=== PATIENT | male | born 1995 | race Hispanic/Latino ===

== ENCOUNTER 2018-03-31 14:18 | Emergency (ER) | payer SELFPAY ==
--- NOTE | 2018-03-31 16:46 | EDPHYS ---
Physician Documentation [facility] Name: Gael Rees Jr Age: 22 yrs Sex: Male : 1995 Arrival Date: 03/31/2018 Time: 14:22 Bed 11 Private MD: None, None ED Physician Thanh Proctor HPI: 03/31 16:41 This 22 yrs old Male presents to ER via Ambulatory with complaints of Back ps1 Pain, High Blood Pressure. 16:41 patient states that he had back pain that started this morning. 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 Pain rated as moderate and localized between the scapula. Additionally he was sent in for evaluation of his blood pressure. . Historical: - Allergies: 14:47 Tylenol; hj - Home Meds: 14:47 None [Active]; hj - PMHx: 14:47 [place]; hj - PSHx: 14:47 ear SX; hj - Immunization history:: Adult Immunizations up to date. - Social history:: Smoking status: Patient/guardian denies using tobacco, Patient/guardian denies using alcohol. - Ebola Screening: : Patient negative for fever greater than or equal to 101.5 degrees Fahrenheit, and additional compatible Ebola Virus Disease symptoms Patient denies exposure to infectious person Patient denies travel to an Ebola-affected area in the 21 days before illness onset. ROS: 16:43 Constitutional: Negative for fever, chills, and weight loss, Eyes: Negative for injury, ps1 pain, redness, and discharge, Cardiovascular: Negative for chest pain, palpitations, and edema, Respiratory: Negative for shortness of breath, cough, wheezing, and pleuritic chest pain, Abdomen/GI: Negative for abdominal pain, nausea, vomiting, diarrhea, and constipation, Skin: Negative for injury, rash, and discoloration, Neuro: Negative for headache, weakness, numbness, tingling, and seizure. 16:43 MS/extremity: Positive for pain. Exam: 16:43 Constitutional: This is a well developed, well nourished patient who is awake, alert, ps1 and in no acute distress. Head/Face: Normocephalic, atraumatic. Chest/axilla: Normal chest wall appearance and motion. Nontender with no deformity. No lesions are appreciated. Cardiovascular: Regular rate and rhythm. No gallops, murmurs, or rubs. Normal PMI, no JVD. No pulse deficits. Respiratory: Lungs have equal breath sounds bilaterally, clear to auscultation and percussion. No rales, rhonchi or wheezes noted. No increased work of breathing, no retractions or nasal flaring. Abdomen/GI: Soft, non-tender, with normal bowel sounds. No distension or tympany. No guarding or rebound. No evidence of tenderness throughout. Skin: Warm, dry with normal turgor. Normal color with no rashes, no lesions, and no evidence of cellulitis. MS/ Extremity: Pulses equal, no cyanosis. Neurovascular intact. Full, normal range of motion. 16:43 Back: patient examined in prone and supine position. Styles screen performed. Tissue texture changes localized to ST, Lumbar, and upper thoracic in compensatory pattern. HVLA performed and patients symptoms improved completely. Normal neurologic exam after. . Vital Signs: 14:47 BP 131 / 89; Pulse 84; Resp 18; Temp 97.4(TE); Pulse Ox 100% on R/A; Weight 61.23 kg; hj Height 5 ft. 6 in. (167.64 cm); Pain 9/10; 14:47 Body Mass Index 21.79 (61.23 kg, 167.64 cm) MDM: 15:07 Patient medically screened. ps1 03/31 15:19 Order name: CXR XRAY ps1 Administered Medications: No medications were administered Disposition: 03/31/18 16:46 Discharged to Home. Impression: Thoracic back pain. - Condition is Stable. - Discharge Instructions: Back Pain, Adult. - Prescriptions for Anaprox DS 550 mg Oral Tablet - take 1 tablet by ORAL route every 12 hours As needed; 20 tablet. - Medication Reconciliation Form, Thank You Letter, Antibiotic Education, Prescription Opioid Use form. - Follow up: Emergency Department; When: As needed; Reason: Worsening of condition. Follow up: Private Physician; When: As needed; Reason: If symptoms return, Further diagnostic work-up, Recheck today's complaints, Continuance of care. - Problem is new. - Symptoms have improved. Signatures: Dispatcher [employer] EDMS Ld Phelps RN RN Pati Oliveros RN RN Thanh Proctor MD MD ps1 Corrections: (The following items were deleted from the chart) 16:51 16:46 03/31/2018 16:46 Discharged to Home. Impression: Thoracic back pain. Condition is hb Stable. Forms are Medication Reconciliation Form, Thank You Letter, Antibiotic Education, Prescription Opioid Use. Follow up: Emergency Department; When: As needed; Reason: Worsening of condition. Follow up: Private Physician; When: As needed; Reason: If symptoms return, Further diagnostic work-up, Recheck today's complaints, Continuance of care. Problem is new. Symptoms have improved. ps1
--- NOTE | 2018-03-31 16:46 | ER ---
Nurse's Notes [facility] Name: Gael Rees Jr Age: 22 yrs Sex: Male : 1995 Arrival Date: 03/31/2018 Time: 14:22 Bed 11 Private MD: None, None Diagnosis: Thoracic back pain Presentation: 03/31 14:45 Presenting complaint: Patient states: i have shoulder pain that started this morning; i hj carry heavy things yesterday; reports elevated BP;. Transition of care: patient was not received from another setting of care. Onset of symptoms was March 31, 2018. Risk Assessment: Do you want to hurt yourself or someone else? Patient reports no desire to harm self or others. Initial Sepsis Screen: Does the patient meet any 2 criteria? No. Patient's initial sepsis screen is negative. Does the patient have a suspected source of infection? No. Patient's initial sepsis screen is negative. Care prior to arrival: None. 14:45 Method Of Arrival: Ambulatory 14:45 Acuity: THOMAS 4 hj Triage Assessment: 14:47 General: Appears in no apparent distress. uncomfortable, Behavior is calm, cooperative, hj appropriate for age. Pain: Complains of pain in shoulder. Musculoskeletal: Circulation, motion, and sensation intact. Historical: - Allergies: 14:47 Tylenol; hj - Home Meds: 14:47 None [Active]; hj - PMHx: 14:47 [place]; hj - PSHx: 14:47 ear SX; hj - Immunization history:: Adult Immunizations up to date. - Social history:: Smoking status: Patient/guardian denies using tobacco, Patient/guardian denies using alcohol. - Ebola Screening: : Patient negative for fever greater than or equal to 101.5 degrees Fahrenheit, and additional compatible Ebola Virus Disease symptoms Patient denies exposure to infectious person Patient denies travel to an Ebola-affected area in the 21 days before illness onset. Screenin:47 Abuse screen: Denies threats or abuse. Denies injuries from another. Nutritional hj screening: No deficits noted. Tuberculosis screening: No symptoms or risk factors identified. Fall Risk None identified. Vital Signs: 14:47 BP 131 / 89; Pulse 84; Resp 18; Temp 97.4(TE); Pulse Ox 100% on R/A; Weight 61.23 kg; hj Height 5 ft. 6 in. (167.64 cm); Pain 9/10; 14:47 Body Mass Index 21.79 (61.23 kg, 167.64 cm) ED Course: 14:22 Patient arrived in ED. mr 14:22 None, None is Private Physician. mr 14:46 Triage completed. hj 14:47 Arm band placed on left wrist. hj 14:47 Patient has correct armband on for positive identification. Placed in gown. Bed in low hj position. Call light in reach. Side rails up X 1. 15:04 Kaila Wade, RN is Primary Nurse. flynn 15:07 Thanh Proctor MD is Attending Physician. ps1 15:58 CXR XRAY In Process Unspecified. EDMS Administered Medications: No medications were administered Outcome: 16:46 Discharge ordered by . ps1 16:51 Patient left the ED. Signatures: Dispatcher [employer] EDMS Kaila Wade RN RN aj RiveraMarielos mr LeninLd villa RN RN hj Baxter, Heather, RN RN Thanh Proctor MD MD ps1
--- NOTE | 2018-03-31 17:43 | RAD REPORT ---
EXAM DESCRIPTION: Jenifer Single View03/31/2018 3:57 pm CLINICAL HISTORY: Chest pain COMPARISON: April 2017 FINDINGS: The lungs appear clear of acute infiltrate. The heart is normal size IMPRESSION: No acute abnormalities displayed
== END 2018-03-31 16:51 | disposition home or self-care (01) ==
LOC: ER 14:18
DX: M54.6 Pain in thoracic spine (principal); Z88.6 Allergy status to analgesic agent
CPT/HCPCS: 71045; 99282

== ENCOUNTER 2020-09-10 09:48 | Emergency (ER) | payer SELFPAY ==
[2020-09-10 11:13] LABS: Absolute Lymphocytes (CBC) 1.6 K/uL (0.7-4.9); Basophils % 0.4 % (0-1.3); Hematocrit 44.8 % (39.6-49.0); Lymphocytes % 29.3 % (15.3-44.8); MPV 8.5 fL (7.6-11.3); RBC Red Blood Cell Count 4.99 M/uL (4.33-5.43)
--- NOTE | 2020-09-10 11:19 | RAD REPORT ---
EXAM DESCRIPTION: RAD - Chest Single View - 09/10/2020 10:38 am CLINICAL HISTORY: PALPITATIONS COMPARISON: March 2018 TECHNIQUE: AP portable chest image was obtained 09/10/2020 10:38 am . FINDINGS: Lungs are clear. Heart and vasculature are normal. No measurable pleural effusion and no p neumothorax. No acute bony abnormality seen. No acute aortic findings suspected. IMPRESSION: No acute cardiopulmonary process.
[2020-09-10 11:27] LABS: Protime INR 0.99
[2020-09-10 11:33] LABS: ALT/SGPT 30 U/L (12-78); AST/SGOT 14 U/L (15-37); Albumin 4.3 g/dL (3.4-5.0); Alkaline Phosphatase 119 U/L (45-117); BUN Blood Urea Nitrogen 13 mg/dL (7-18); Bicarbonate 29 mmol/L (21-32); Bilirubin Direct < 0.1 mg/dL (0-0.2); Bilirubin Total 0.4 mg/dL (0.2-1.0); Glucose Level 95 mg/dL (74-106); Magnesium 2.4 mg/dL (1.8-2.4); Potassium 3.9 mmol/L (3.5-5.1); Protein, Total 8.8 g/dL (6.4-8.2); Sodium Level 140 mmol/L (136-145); Troponin (Emerg Dept Use Only) < 0.02 ng/mL (0.0-0.045)
[2020-09-10 12:04] LABS: Urine Blood Negative (Negative); Urine Glucose Negative (Negative); Urine Protein Negative (Negative)
[2020-09-10 12:19] LABS: Barbiturates NEGATIVE (NEGATIVE); Benzodiazepines NEGATIVE (NEGATIVE); Cocaine NEGATIVE (NEGATIVE); METHAMPHETAM NEGATIVE (NEGATIVE); Methadone NEGATIVE (NEGATIVE); Opiates NEGATIVE (NEGATIVE); Phencyclidine NEGATIVE (NEGATIVE); THC Cannibis NEGATIVE (NEGATIVE)
--- NOTE | 2020-09-10 12:25 | EDPHYS ---
Physician Documentation [facility] Name: Gael Rees Jr Age: 25 yrs Sex: Male : 1995 Arrival Date: 09/10/2020 Time: 09:51 Bed 16 Private MD: ED Physician Pk Buck HPI: 09/10 10:20 This 25 yrs old Male presents to ER via Ambulatory with complaints of cp Irregular Pulse. 10:20 The patient presents with a history of heart racing. Context: The symptoms occur with cp light activity, while at work today. 10:20 Onset: The symptoms/episode began/occurred today. Duration: The patient or guardian cp reports a single episode, that is now resolved. Patient reports he was at work today when he felt like his heart started "racing", so he put his hand across his chest and was told by his employer to go to ED to get checked out. Patient admits to consuming energy drink this morning prior to symptoms. Patient denies any chest pain with episode. Historical: - Allergies: 10:03 Tylenol-Codeine; iw - Home Meds: 10:03 None [Active]; iw - PMHx: 10:03 None; iw - PSHx: 10:03 left ear; iw - Immunization history:: Client reports having NOT received the Covid vaccine. - Social history:: Smoking status: Patient denies any tobacco usage or history of. ROS: 10:20 Constitutional: Negative for body aches, chills, fever, poor PO intake. cp 10:20 Cardiovascular: Positive for palpitations, Negative for chest pain, edema. cp 10:20 Respiratory: Negative for cough, shortness of breath, wheezing. 10:20 Neck: Negative for pain with movement, pain at rest, stiffness. cp 10:20 Abdomen/GI: Negative for abdominal pain, nausea, vomiting, and diarrhea. 10:20 Back: Negative for radiated pain. 10:20 Neuro: Negative for altered mental status, dizziness, headache, syncope, weakness. 10:20 All other systems are negative. cp Exam: 10:17 ECG was reviewed by the Attending Physician. cp 10:25 Constitutional: The patient appears in no acute distress, alert, awake, comfortable, cp non-diaphoretic, non-toxic, well developed, well nourished. 10:25 Head/Face: Normocephalic, atraumatic. cp 10:25 Eyes: Periorbital structures: appear normal, Conjunctiva: normal, no exudate, no injection, Sclera: no appreciated abnormality, Lids and lashes: appear normal, bilaterally. 10:25 ENT: External ear(s): are unremarkable, Nose: is normal, Mouth: Lips: moist, Oral mucosa: moist, Posterior pharynx: Airway: no evidence of obstruction, patent. 10:25 Neck: ROM/movement: is normal, is supple, without pain, no range of motions limitations. 10:25 Chest/axilla: Inspection: normal, Palpation: is normal, no crepitus, no tenderness. 10:25 Cardiovascular: Rate: normal, Rhythm: regular, Heart sounds: murmur, not appreciated, Edema: is not appreciated, JVD: is not appreciated. 10:25 Respiratory: the patient does not display signs of respiratory distress, Respirations: normal, no use of accessory muscles, no retractions, labored breathing, is not present, Breath sounds: are clear throughout, no decreased breath sounds, no stridor, no wheezing. 10:25 Abdomen/GI: Inspection: abdomen appears normal, Palpation: abdomen is soft and non-tender, in all quadrants. 10:25 Back: pain, is absent, ROM is normal. 10:25 Neuro: Orientation: to person, place \\T\\ time. Mentation: is normal, Cerebellar function: is grossly normal, Motor: moves all fours, strength is normal, Sensation: is normal. Vital Signs: 10:00 BP 135 / 92; Pulse 78; Resp 16; Temp 97.4; Pulse Ox 100% on R/A; Weight 72.57 kg; iw Height 5 ft. 6 in. (167.64 cm); Pain 0/10; 11:00 BP 114 / 97; Pulse 81; Resp 16 S; Pulse Ox 100% on R/A; ca1 12:05 BP 121 / 89; Pulse 76; Resp 16 S; Pulse Ox 100% on R/A; ca1 12:54 BP 137 / 96; Pulse 68; Resp 18 S; Pulse Ox 100% on R/A; ca1 10:00 Body Mass Index 25.82 (72.57 kg, 167.64 cm) iw MDM: 10:10 Patient medically screened. mainor 10:30 Differential diagnosis: arrythmia, dehydration, stress disorder, electrolyte cp abnormality. 12:25 Data reviewed: vital signs, nurses notes, lab test result(s), EKG, radiologic studies, cp plain films. 12:25 Test interpretation: by ED physician or midlevel provider: ECG, plain radiologic cp studies. Counseling: I had a detailed discussion with the patient and/or guardian regarding: the historical points, exam findings, and any diagnostic results supporting the discharge/admit diagnosis, lab results, radiology results, to return to the emergency department if symptoms worsen or persist or if there are any questions or concerns that arise at home. Response to treatment: the patient's symptoms have resolved after treatment, and as a result, I will discharge patient. 09/10 10:18 Order name: Basic Metabolic Panel; Complete Time: 11:42 cp 09/10 10:18 Order name: CBC with Diff; Complete Time: 11:42 cp 09/10 11:42 Interpretation: Normal except: MCV 89.8. cp 09/10 10:18 Order name: LFT's; Complete Time: 11:42 cp 09/10 11:43 Interpretation: Normal except: AST 14; ALK 119; TP 8.8; GLOB 4.5; A/G 1.0. cp 09/10 10:18 Order name: Magnesium; Complete Time: 11:42 cp 09/10 10:18 Order name: PT-INR; Complete Time: 11:42 cp 09/10 10:18 Order name: Troponin (emerg Dept Use Only); Complete Time: 11:42 cp 09/10 10:18 Order name: XRAY Chest (1 view); Complete Time: 11:42 cp 09/10 10:18 Order name: EKG; Complete Time: 10:19 cp 09/10 10:18 Order name: Cardiac monitoring; Complete Time: 11:05 cp 09/10 10:18 Order name: EKG - Nurse/Tech; Complete Time: 11:05 cp 09/10 10:18 Order name: IV Saline Lock; Complete Time: 11:05 cp 09/10 10:18 Order name: UDS; Complete Time: 12:24 cp 09/10 10:18 Order name: D-Dimer; Complete Time: 11:42 cp 09/10 11:43 Interpretation: Within normal limits: D-DIMER < 215. cp 09/10 12:04 Order name: Urine Dipstick-Ancillary; Complete Time: 12:24 EDGA 09/10 10:18 Order name: Labs collected and sent; Complete Time: 11:05 09/10 10:18 Order name: O2 Per Protocol; Complete Time: 11:06 09/10 10:18 Order name: O2 Sat Monitoring; Complete Time: 11:06 EC:17 Rate is 76 beats/min. Rhythm is regular. OR interval is normal. QRS interval is normal. cp QT interval is normal. T waves are Inverted in lead aVR. Interpreted by me. Reviewed by me. Administered Medications: No medications were administered Disposition: 13:00 Chart complete. 21:08 Co-signature as Attending Physician, Pk Buck MD I agree with the assessment and [facility] plan of care. Disposition: 09/10/20 12:25 Discharged to Home. Impression: Palpitations. - Condition is Stable. - Discharge Instructions: Palpitations. - Medication Reconciliation Form, Thank You Letter, Antibiotic Education, Prescription Opioid Use, Work release form form. - Follow up: Gunner Sánchez MD; When: 2 - 3 days; Reason: Recheck today's complaints. - Problem is new. - Symptoms are resolved. Signatures: Dispatcher [employer] [facility] Pk Buck MD MD cha Williams, Irene, RN RN Pk Martinez PA PA Marilee Fox RN RN ca1 Corrections: (The following items were deleted from the chart) 12:55 12:25 09/10/2020 12:25 Discharged to Home. Impression: Palpitations. Condition is ca1 Stable. Forms are Medication Reconciliation Form, Thank You Letter, Antibiotic Education, Prescription Opioid Use. Follow up: Gunner Sánchez; When: 2 - 3 days; Reason: Recheck today's complaints. Problem is new. Symptoms are resolved. cp
--- NOTE | 2020-09-10 12:25 | ER ---
Nurse's Notes [facility] Name: Gael Rees Jr Age: 25 yrs Sex: Male : 1995 Arrival Date: 09/10/2020 Time: 09:51 Bed 16 Private MD: Diagnosis: Palpitations Presentation: 09/10 10:00 Chief complaint: Patient states: drank an energy drink this morning and he doesn't iw normally drink them, did not eat anything, felt like his heart was beating fast, his work made him leave because they saw him holding his chest , he now needs a note to got back to work, pt denies cheat pain or palpitations at this time. Coronavirus screen: At this time, the client does not indicate any symptoms associated with coronavirus-19. Ebola Screen: Patient negative for fever greater than or equal to 101.5 degrees Fahrenheit, and additional compatible Ebola Virus Disease symptoms Patient denies exposure to infectious person. Patient denies travel to an Ebola-affected area in the 21 days before illness onset. No symptoms or risks identified at this time. Initial Sepsis Screen: Does the patient meet any 2 criteria? No. Patient's initial sepsis screen is negative. Does the patient have a suspected source of infection? No. Patient's initial sepsis screen is negative. Risk Assessment: Do you want to hurt yourself or someone else? Patient reports no desire to harm self or others. Onset of symptoms was September 10, 2020. 10:00 Method Of Arrival: Ambulatory iw 10:00 Acuity: THOMAS 4 iw 10:43 Acuity: THOMAS 3 iw Historical: - Allergies: 10:03 Tylenol-Codeine; iw - Home Meds: 10:03 None [Active]; iw - PMHx: 10:03 None; iw - PSHx: 10:03 left ear; iw - Immunization history:: Client reports having NOT received the Covid vaccine. - Social history:: Smoking status: Patient denies any tobacco usage or history of. Screenin:10 Abuse screen: Denies threats or abuse. Denies injuries from another. Nutritional ca1 screening: No deficits noted. Tuberculosis screening: No symptoms or risk factors identified. Fall Risk IV access (20 points). Assessment: 10:10 General: Appears in no apparent distress. comfortable, Behavior is calm, cooperative, ca1 appropriate for age. Pain: Denies pain. Pain does not radiate. Pain began. Neuro: Level of Consciousness is awake, alert, obeys commands, Oriented to person, place, time, situation. Cardiovascular: Heart tones S1 S2 present Capillary refill < 3 seconds Patient's skin is warm and dry. Rhythm is sinus rhythm. Respiratory: Airway is patent Respiratory effort is even, unlabored, Respiratory pattern is regular, symmetrical, Breath sounds are clear bilaterally. GI: Abdomen is flat, non-distended, Bowel sounds present X 4 quads. Abd is soft and non tender X 4 quads. : No signs and/or symptoms were reported regarding the genitourinary system. EENT: No signs and/or symptoms were reported regarding the EENT system. Derm: Skin is intact, is healthy with good turgor, Skin is pink, warm \T\ dry. Musculoskeletal: Circulation, motion, and sensation intact. Capillary refill < 3 seconds. 11:00 Reassessment: Patient appears in no apparent distress at this time. Patient and/or ca1 family updated on plan of care and expected duration. Pain level reassessed. Patient is alert, oriented x 3, equal unlabored respirations, skin warm/dry/pink. 11:57 Reassessment: Patient appears in no apparent distress at this time. Patient and/or ca1 family updated on plan of care and expected duration. Pain level reassessed. Patient is alert, oriented x 3, equal unlabored respirations, skin warm/dry/pink. 12:54 Reassessment: Patient appears in no apparent distress at this time. Reassessment: ca1 Patient appears in no apparent distress at this time. Patient and/or family updated on plan of care and expected duration. Pain level reassessed. Patient is alert, oriented x 3, equal unlabored respirations, skin warm/dry/pink. Vital Signs: 10:00 BP 135 / 92; Pulse 78; Resp 16; Temp 97.4; Pulse Ox 100% on R/A; Weight 72.57 kg; iw Height 5 ft. 6 in. (167.64 cm); Pain 0/10; 11:00 BP 114 / 97; Pulse 81; Resp 16 S; Pulse Ox 100% on R/A; ca1 12:05 BP 121 / 89; Pulse 76; Resp 16 S; Pulse Ox 100% on R/A; ca1 12:54 BP 137 / 96; Pulse 68; Resp 18 S; Pulse Ox 100% on R/A; ca1 10:00 Body Mass Index 25.82 (72.57 kg, 167.64 cm) iw ED Course: 09:51 Patient arrived in ED. as 10:02 Triage completed. iw 10:03 Arm band placed on. iw 10:05 Pk Coleman PA is PHCP. cp 10:05 Pk Buck MD is Attending Physician. cp 10:08 Marilee Fox, ARLEY is Primary Nurse. ca1 10:10 Patient has correct armband on for positive identification. Placed in gown. Bed in low ca1 position. Call light in reach. Side rails up X2. laboratory monitor on. Pulse ox on. NIBP on. Warm blanket given. 10:38 XRAY Chest (1 view) In Process Unspecified. EDMS 11:03 No provider procedures requiring assistance completed. Initial lab(s) drawn, by nd, ca1 sent to lab. Inserted saline lock: 20 gauge in left antecubital area, using aseptic technique. Blood collected. Patient maintains SpO2 saturation greater than 95% on room air. 12:24 Gunner Sánchez MD is Referral Physician. cp 12:55 IV discontinued, intact, bleeding controlled, No redness/swelling at site. Pressure ca1 dressing applied. Administered Medications: No medications were administered Outcome: 12:25 Discharge ordered by . cp 12:55 Discharged to home ambulatory. ca1 12:55 Condition: stable 12:55 Discharge instructions given to patient, Instructed on discharge instructions, follow up and referral plans. Demonstrated understanding of instructions, follow-up care. 12:55 Patient left the ED. ca1 Signatures: Dispatcher [employer] EDMS Carole Rodriguez as Lakeisha Stern, RN RN iw Pk Coleman PA PA cp Marilee Fox, ARLEY RN ca1 Corrections: (The following items were deleted from the chart) 10:04 10:00 BP 129 / ???; Pulse 78bpm; Resp 16bpm; Pulse Ox 100% RA; Temp 97.4F; 72.57 kg; iw Height 5 ft. 6 in.; BMI: 25.8; Pain 0/10; iw
[2020-09-10 13:02] VITALS: TEMP 97.4; O2SAT 100
[2020-09-10 13:06] VITALS: BP 137/96
--- NOTE | 2020-09-11 08:46 | EKG ---
Test Date: 2020-09-10 Test Time: 10:11:33 Wheel Polisher: ZO MEASUREMENT RESULTS: Intervals: Rate: 76 AR: 132 QRSD: 86 QT: 352 QTc: 396 [place]: P: 52 AR: 132 QRS: 48 T: 53 INTERPRETIVE STATEMENTS: Normal sinus rhythm with sinus arrhythmia Normal ECG Compared to ECG 05/15/2017 13:13:29 No significant changes Electronically Signed On 09-11-20 08:43:25 CDT by Gunner Sánchez
== END 2020-09-10 12:55 | disposition home or self-care (01) ==
LOC: ER 09:48
DX: R00.2 Palpitations (principal); Z88.5 Allergy status to narcotic agent
CPT/HCPCS: 36415; 71045; 80048; 80076; 80307; 81003; 83735; 84484; 85025; 85379; 85610; 93005; 99285